=== PATIENT | female | born 1985 | race Caucasian/White ===

== ENCOUNTER 2016-11-08 10:09 | Day surgery (SDC) | payer OTHER ==
[2016-11-07 16:42] VITALS: BMI 23.8
[2016-11-08] MEDS ORDERED: MIDAZOLAM HCL 2 MG/2 ML SINGLE DOSE VIAL ONE (12:18)
[2016-11-08] MEDS ORDERED: DEXAMETHASONE SOD PHOSPHATE/PF 10 MG/ML SDV ONE (12:18)
[2016-11-08] MEDS ORDERED: ROPIVACAINE HCL 0.5% 30ML VIAL ONE (12:18)
[2016-11-08] MEDS ORDERED: DEXAMETHASONE SOD PHOSPHATE 4 MG/1 ML VIAL ONE (13:21)
[2016-11-08] MEDS ORDERED: ceFAZolin SODIUM 1 GM VIAL ONE (13:21)
[2016-11-08] MEDS ORDERED: PROPOFOL 20 ML ONE (13:21)
[2016-11-08] MEDS ORDERED: ONDANSETRON 4 MG/2 ML VIAL ONE (13:22)
[2016-11-08] MEDS ORDERED: PROMETHAZINE HCL 25 MG/1 ML VIAL IVPUSH PRN (14:41)
[2016-11-08] MEDS ORDERED: ONDANSETRON 4 MG/2 ML VIAL IVPUSH PRN (14:41)
[2016-11-08] MEDS ORDERED: oxyCODONE HCL 5 MG TABLET PO PRN (14:41)
[2016-11-08] MEDS ORDERED: LACTATED RINGERS SOLUTION 1,000 ML IV SCH (14:45)
[2016-11-08 16:07] VITALS: BP 117/74; PULSE 70; TEMP 97.8
--- NOTE | 2016-11-09 12:32 | OP ---
DATE OF OPERATION: 11/08/2016 PREOPERATIVE DIAGNOSIS: Left comminuted displaced distal radius fracture. POSTOPERATIVE DIAGNOSIS: Left comminuted displaced distal radius fracture. OPERATIVE PROCEDURE: 1. Open reduction and internal fixation of left comminuted displaced distal radius fracture with internal fixation of 3 or more fragments. 2. Left brachioradialis tenotomy. SURGEON: Amador Lundberg MD INDUSTRIAL ENGINEER: SANG Mendoza ANESTHESIA: Regional and general. COMPLICATIONS: None. ESTIMATED BLOOD LOSS: Minimal. INDICATION FOR PROCEDURE: The patient is a 31-year-old female with the above finding, indicated for operative treatment. Risks, benefits, and alternatives were discussed with the patient at length. Proper informed consent was obtained. DESCRIPTION OF PROCEDURE: After proper identification of the patient and the correct operative site, the patient was brought to the operating room and placed supine on the operating table. All prominences were well padded. Regional and general anesthesia were given by the anesthesiologist. Intravenous antibiotics given. A timeout procedure was performed. The left upper extremity was prepped and draped in the usual sterile fashion. A well-padded tourniquet was placed as well as sterile prep. An Esmarch bandage was used to exsanguinate the left upper extremity. A tourniquet was inflated to 250 mmHg. A longitudinal incision was made over the flexor carpi radialis tendon. The incision was taken sharply through the skin with blunt and sharp dissection through the subcutaneous tissues. The flexor carpi radialis tendon along with the carpal canal were bluntly and gently retracted ulnarly for the remainder of the procedure. The pronator quadratus was divided off of the distal radius where a comminuted displaced fracture was noted. Brachioradialis pull was making full reduction impossible. Therefore, a subperiosteal brachioradialis tenotomy was performed. Reduction was then performed and held with an Acumed EX distal locking plate. This provided secure, stable fixation with proximal nonlocking screws and distal locking screws. At this point, the repair was found to be stable both clinically and radiographically. The distal radial ulnar joint was found to be stable and full range of motion of the wrist was achieved. Scapholunate intervals were stressed both clinically and radiographically and found to be stable, although there was some static widening of the scapholunate interval. The wound was irrigated with saline and repaired in layers, including the pronator quadratus, with 4-0 Vicryl and 4-0 Monocryl sutures. Steri-Strips, sterile dressings, and a splint were placed. The patient was reversed from anesthesia and brought to the recovery room in stable condition. Keron Bateman, the care team assistant, was integral throughout the procedure. The procedure could not have been performed without a skilled operative care team assistant. Darek [id number]
== END 2016-11-08 16:05 | disposition home or self-care (01) ==
LOC: FASU 10:09
PROVIDERS: ATTEND Orthopaedic Surgery Hand Surgery
PROC: 0LN60ZZ Release Left Lower Arm and Wrist Tendon, Open Approach (ICD-10-PCS; 2016-11-08)
PROC: 0PSJ04Z Reposition Left Radius with Internal Fixation Device, Open Approach (ICD-10-PCS; principal; 2016-11-08 13:03)
DX: S52.502A Unspecified fracture of the lower end of left radius, initial encounter for closed fracture (principal); X58.XXXA Exposure to other specified factors, initial encounter; Y93.9 Activity, unspecified; Y92.9 Unspecified place or not applicable
CPT/HCPCS: 25290; 25609; C1713; 73110-TC-LT; 84703; 94760